=== PATIENT | female | born 2000 ===

== ENCOUNTER 2022-04-26 04:07 | Inpatient (IN) | payer BC ==
[2022-04-26] MEDS ORDERED: Terbutaline 1 MG/ML SDV SUBCUT PRN (11:18)
[2022-04-26] MEDS ORDERED: Tranexamic Acid 1,000 MG in Sodium Chloride 0.9% 100 ML IV PRN (11:18)
[2022-04-26] MEDS ORDERED: Misoprostol 25 MCG (1/4 of 100 MCG) Tab VAG PRN (11:18)
[2022-04-26] MEDS ORDERED: Lidocaine 1% 50 ML MDV INJECT PRN (11:18)
[2022-04-26] MEDS ORDERED: Carboprost Tromethamine 250 MCG/1 ML Amp IM PRN (11:18)
[2022-04-26] MEDS ORDERED: Sodium Chloride 0.9% 2.5 ML Syringe FLUSH PRN (11:18)
[2022-04-26] MEDS ORDERED: Water For Irrigation,Sterile 1,000 ML Container IRR PRN (11:18)
[2022-04-26] MEDS ORDERED: Sodium Chloride 0.9% 20 ML SDV IV PRN (11:18)
[2022-04-26] MEDS ORDERED: Butorphanol 1 MG/ML SDV IVPUSH PRN (11:18)
[2022-04-26] MEDS ORDERED: Methylergonovine 0.2 MG/1 ML Amp IM PRN (11:18)
[2022-04-26] MEDS ORDERED: Sodium Chloride 0.9% 10 ML Syringe FLUSH PRN (11:18)
[2022-04-26] MEDS ORDERED: Misoprostol 200 MCG Tab PO PRN (11:18)
[2022-04-26] MEDS ORDERED: Oxytocin/0.9 % Sodium Chloride 30 UNIT/500 ML BAG IV SCH ×2 (11:30)
[2022-04-26] MEDS: Misoprostol 25 MCG (1/4 of 100 MCG) Tab VAG PRN ×2 (16:29→21:13)
[2022-04-26] MEDS: Lactated Ringers 1,000 ML IV SCH (21:50)
[2022-04-26] MEDS ORDERED: Ropivacaine/PF 400 MG/200 ML PCA ONE (23:23)
[2022-04-26] MEDS ORDERED: ePHEDrine 50 MG/ML SDV IVPUSH PRN (23:36)
[2022-04-26] MEDS ORDERED: Ropivacaine HCl/PF 400 MG in Premix Bag 1 BAG EPIDUR SCH (23:45)
[2022-04-26] MEDS ORDERED: Phenylephrine HCl In 0.9% NaCl 1 MG/10 ML Vial IVPUSH SCH (23:45)
[2022-04-27] MEDS: Lactated Ringers 1,000 ML IV SCH (00:38)
[2022-04-27] MEDS ORDERED: Acetaminophen 500 MG Tab PO PRN ×2 (05:42)
[2022-04-27] MEDS ORDERED: Ibuprofen 400 MG Tab PO PRN (05:42)
[2022-04-27] MEDS ORDERED: Docusate Sodium 100 MG Cap PO PRN (05:42)
[2022-04-27] MEDS ORDERED: Lanolin 100% Cream 7 GM Tube TOP PRN (05:42)
[2022-04-27] MEDS: Ibuprofen 800 MG Tab PO PRN ×2 (13:34→20:58)
[2022-04-27] MEDS: Benzocaine/Menthol 20%-0.5% Spray 78 GM Cannister TOP PRN (13:36)
[2022-04-27] MEDS: Witch Hazel Medicated Pads 40/Jar TOP PRN (13:36)
[2022-04-28] MEDS: Ibuprofen 800 MG Tab PO PRN ×2 (03:24→13:20)
[2022-04-28] MEDS: Witch Hazel Medicated Pads 40/Jar TOP PRN (03:27)
[2022-04-28] MEDS: Benzocaine/Menthol 20%-0.5% Spray 78 GM Cannister TOP PRN (16:14)
== END 2022-04-28 20:23 | disposition home or self-care (01) | DRG 560 ==
LOC: MW.OB 04:07 → OBSVTOIN 04-27 04:07 → MW.OB 04-27 08:28
PROVIDERS: ADMIT Obstetrics & Gynecology; ATTEND Obstetrics & Gynecology
PROC: 10E0XZZ Delivery of Products of Conception, External Approach (ICD-10-PCS; principal; 2022-04-27)
PROC: 0KQM0ZZ Repair Perineum Muscle, Open Approach (ICD-10-PCS; 2022-04-27)
DX: O48.0 Post-term pregnancy (principal); Z3A.41 41 weeks gestation of pregnancy; Z37.0 Single live birth; O70.1 Second degree perineal laceration during delivery; Z20.822 Contact with and (suspected) exposure to COVID-19
CPT/HCPCS: 36415; 51702; 59025; 59409; 82803; 85014; 85018; 85027; 86592; 86850; 86900; 86901; A9270-GY; J2590; J2795; J7120; U0002

== ENCOUNTER 2023-04-20 16:14 | Inpatient (IN) | payer BC ==
[2023-04-20] MEDS ORDERED: Sodium Chloride 0.9% 20 ML SDV IV PRN (16:37)
[2023-04-20] MEDS ORDERED: Methylergonovine 0.2 MG/1 ML Amp IM PRN (16:37)
[2023-04-20] MEDS ORDERED: Sodium Chloride 0.9% 10 ML Syringe FLUSH PRN (16:37)
[2023-04-20] MEDS ORDERED: Misoprostol 200 MCG Tab PO PRN (16:37)
[2023-04-20] MEDS ORDERED: Lidocaine 1% 50 ML MDV INJECT PRN (16:37)
[2023-04-20] MEDS ORDERED: Ondansetron 4 MG/2 ML SDV IVPUSH PRN (16:37)
[2023-04-20] MEDS ORDERED: Water For Irrigation,Sterile 1,000 ML Container IRR PRN (16:37)
[2023-04-20] MEDS ORDERED: Carboprost Tromethamine 250 MCG/1 mL Vial IM PRN (16:37)
[2023-04-20] MEDS ORDERED: Butorphanol 1 MG/ML SDV IVPUSH PRN (16:37)
[2023-04-20] MEDS ORDERED: Tranexamic Acid 1,000 MG in Sodium Chloride 0.9% 100 ML IV PRN (16:37)
[2023-04-20] MEDS ORDERED: Sodium Chloride 0.9% 2.5 ML Syringe FLUSH PRN (16:37)
[2023-04-20] MEDS ORDERED: Oxytocin/0.9 % Sodium Chloride 30 UNIT/500 ML BAG IV SCH (16:45)
[2023-04-20] MEDS: Lactated Ringers 1,000 ML IV SCH ×2 (17:00→17:52)
[2023-04-20 17:08] LABS: HEMATOCRIT 37.6 % (36.0-46.0); HEMOGLOBIN 12.2 g/dL (12.0-16.0); MEAN CORPUSCULAR HEMOGLOBIN 26.8 pg (27.0-32.0); MEAN CORPUSCULAR HGB CONC 32.4 g/dL (31.0-37.0); MEAN CORPUSCULAR VOLUME 82.6 fL (80.0-98.0); MEAN PLATELET VOLUME 9.2 fL (7.40-12.00); RED BLOOD CELL COUNT 4.55 M/uL (4.30-5.90); WHITE BLOOD CELL COUNT,WBC 11.54 K/uL (4.0-11.0)
[2023-04-20] MEDS ORDERED: ePHEDrine 50 MG/ML SDV IVPUSH PRN ×2 (17:27)
[2023-04-20] MEDS ORDERED: Phenylephrine HCl 0.5 MG/5 ML AMP IVPUSH PRN (17:27)
[2023-04-20] MEDS ORDERED: Ropivacaine HCl/PF 400 MG in Premix Bag 1 BAG EPIDUR SCH (17:30)
[2023-04-20] MEDS ORDERED: oxyCODONE 5 MG Tab PO PRN (18:53)
[2023-04-20] MEDS ORDERED: Docusate Sodium 100 MG Cap PO PRN (18:53)
[2023-04-20] MEDS ORDERED: Benzocaine/Menthol 20%-0.5% Spray 78 GM Cannister TOP PRN (18:53)
[2023-04-20] MEDS ORDERED: Acetaminophen 500 MG Tab PO PRN ×2 (18:53)
[2023-04-20] MEDS ORDERED: Ibuprofen 800 MG Tab PO PRN (18:53)
[2023-04-20] MEDS ORDERED: Bisacodyl 10 MG Supp RECTAL PRN (18:53)
[2023-04-20] MEDS ORDERED: Lanolin 100% Cream 7 GM Tube TOP PRN (18:53)
[2023-04-20] MEDS ORDERED: Ibuprofen 400 MG Tab PO PRN (18:53)
[2023-04-20 19:18] LABS: PH,UMBILICAL ARTERIAL 7.369 (7.18-7.38)
[2023-04-20 19:19] LABS: PH,UMBILICAL VENOUS 7.444 (7.25-7.45)
[2023-04-20] MEDS: Witch Hazel Medicated Pads 40/Jar TOP PRN (20:31)
[2023-04-21 06:41] LABS: HEMATOCRIT 34.2 % (36.0-46.0)
[2023-04-21] MEDS: Witch Hazel Medicated Pads 40/Jar TOP PRN (19:40)
== END 2023-04-21 23:18 | disposition home or self-care (01) | DRG 560 ==
LOC: MW.OBCHECK 16:14 → MW.OB 16:17 → MW.OBCHECK 16:36 → MW.OB 16:37 → OBSVTOIN 18:27 → MW.OB 22:02
PROVIDERS: ADMIT Obstetrics & Gynecology; ATTEND Obstetrics & Gynecology
PROC: 10E0XZZ Delivery of Products of Conception, External Approach (ICD-10-PCS; principal; 2023-04-20)
PROC: 3E0R3BZ Introduction of Anesthetic Agent into Spinal Canal, Percutaneous Approach (ICD-10-PCS; 2023-04-20)
PROC: 00HU33Z Insertion of Infusion Device into Spinal Canal, Percutaneous Approach (ICD-10-PCS; 2023-04-20)
PROC: 0HQ9XZZ Repair Perineum Skin, External Approach (ICD-10-PCS; 2023-04-20)
PROC: 3E033VJ Introduction of Other Hormone into Peripheral Vein, Percutaneous Approach (ICD-10-PCS; 2023-04-20)
DX: O99.284 Endocrine, nutritional and metabolic diseases complicating childbirth (principal); Z37.0 Single live birth; Z3A.39 39 weeks gestation of pregnancy; E03.9 Hypothyroidism, unspecified; O70.0 First degree perineal laceration during delivery
CPT/HCPCS: 36415; 59409; 82803; 85014; 85018; 85027; 86592; 86850; 86900; 86901; A9270-GY; J2590; J7120